=== PATIENT | male | born 1950 | race Caucasian/White ===

== ENCOUNTER 2016-10-06 05:44 | Inpatient (IN) | payer OTHER ==
[~2016-10-06] VITALS: Ht 182.9 cm; Wt 112.4 kg
[~2016-10-06 05:44] MED LIST: COZAAR50 MG PO; GLUCOPHAGE1000 MG PO; HYDROCHLOROTHIA25 MG PO; ZOCOR20 MG PO
[2016-10-06 06:05] VITALS: BP 121/73
[2016-10-06 06:38] LABS: POINT-OF-CARE METER ID UU14174212
[2016-10-06] MEDS ORDERED: DOCUSATE SODIU100 MG PO (11:18)
[2016-10-06] MEDS ORDERED: ENDOCET 5-3251 EACH PO (11:18)
[2016-10-06 11:39] LABS: POINT-OF-CARE METER ID UU13113675; POINT-OF-CARE USER ID 515036437
[2016-10-06 12:05] LABS: HEMATOCRIT 41.7 % (38.0-50.0); MCH 29.9 PG (29.0-34.0); MCHC 34.3 G/DL (30.0-36.0); MCV 87.1 FL (86-99); MEAN PLAT.VOLUME 9.5 uM^3 (9.0-12.4); PLATELET COUNT 159 K/uL (156-360); RBC DIS.WIDTH-CV 12.5 % (11.8-14.6); RBC DIS.WIDTH-SD 39.9 % (39-53); RED BLOOD COUNT 4.79 M/uL (4.00-5.50)
[2016-10-06 12:07] LABS: WHITE BLOOD COUNT 8.9 K/uL (4.1-10.2)
[2016-10-06 12:17] LABS: ANION GAP 7 MEQ/L (2-14); CHLORIDE 103 MEQ/L (99-109); GFR ESTIMATE (CALCULATED) > 59 mL/min/; GLUCOSE 174 mg/dL (70-99); POTASSIUM 4.2 MEQ/L (3.7-5.4); SAMPLE HEMOLYSIS CHECK 0; SAMPLE ICTERIC CHECK 0; SAMPLE LIPEMIA CHECK 0; SODIUM 138 MEQ/L (136-147); UREA NITROGEN (BUN) 11 mg/dL (9-23)
[2016-10-06 16:41] LABS: POINT-OF-CARE METER ID UU13113675; POINT-OF-CARE USER ID ADMSLT55
[2016-10-06 22:23] VITALS: BP 142/86
[2016-10-06 22:26] VITALS: BP 142/86
[2016-10-07 02:08] VITALS: BP 143/77
[2016-10-07 07:10] LABS: HEMATOCRIT 36.2 % (38.0-50.0); MCHC 34.5 G/DL (30.0-36.0); MCV 86.8 FL (86-99); MEAN PLAT.VOLUME 9.7 uM^3 (9.0-12.4); PLATELET COUNT 143 K/uL (156-360); RBC DIS.WIDTH-CV 12.4 % (11.8-14.6); RBC DIS.WIDTH-SD 39.3 % (39-53); RED BLOOD COUNT 4.17 M/uL (4.00-5.50); WHITE BLOOD COUNT 8.4 K/uL (4.1-10.2)
[2016-10-07 07:30] LABS: ANION GAP 6 MEQ/L (2-14); CHLORIDE 103 MEQ/L (99-109); GFR ESTIMATE (CALCULATED) > 59 mL/min/; GLUCOSE 126 mg/dL (70-99); POTASSIUM 4.4 MEQ/L (3.7-5.4); SAMPLE HEMOLYSIS CHECK 0; SAMPLE ICTERIC CHECK 0; SAMPLE LIPEMIA CHECK 0; SODIUM 139 MEQ/L (136-147); UREA NITROGEN (BUN) 12 mg/dL (9-23)
[2016-10-07 07:50] VITALS: BP 146/77
[2016-10-07 11:51] LABS: POINT-OF-CARE METER ID UU13113725
[2016-10-07 15:11] LABS: POINT-OF-CARE METER ID UU13113725
[2016-10-07 16:27] VITALS: BP 177/85
[2016-10-07 23:13] VITALS: BP 143/78
[2016-10-08 04:02] VITALS: BP 136/77
[2016-10-08 04:06] VITALS: BP 136/77
[2016-10-08 06:28] LABS: HEMATOCRIT 36.1 % (38.0-50.0); MCH 28.7 PG (29.0-34.0); MEAN PLAT.VOLUME 9.5 uM^3 (9.0-12.4); PLATELET COUNT 132 K/uL (156-360); RBC DIS.WIDTH-CV 12.4 % (11.8-14.6); RBC DIS.WIDTH-SD 39.8 % (39-53); RED BLOOD COUNT 4.15 M/uL (4.00-5.50); WHITE BLOOD COUNT 6.4 K/uL (4.1-10.2)
[2016-10-08 06:38] LABS: POINT-OF-CARE METER ID UU13113717
[2016-10-08 06:51] LABS: ANION GAP 6 MEQ/L (2-14); CHLORIDE 97 MEQ/L (99-109); GFR ESTIMATE (CALCULATED) > 59 mL/min/; GLUCOSE 143 mg/dL (70-99); POTASSIUM 4.1 MEQ/L (3.7-5.4); SAMPLE HEMOLYSIS CHECK 0; SAMPLE ICTERIC CHECK 0; SAMPLE LIPEMIA CHECK 0; SODIUM 134 MEQ/L (136-147); UREA NITROGEN (BUN) 10 mg/dL (9-23)
[2016-10-08 08:27] VITALS: BP 153/92
== END 2016-10-08 12:23 | disposition home or self-care (01) | DRG 658 ==
LOC: 2SOUTH 05:44 → 5EAST 05:44 → 2SOUTH 11:40 → 5EAST 21:49
PROVIDERS: Urology
PROC: 0TT00ZZ Resection of Right Kidney, Open Approach (ICD-10-PCS; principal; 2016-10-06)
DX: C64.1 Malignant neoplasm of right kidney, except renal pelvis (principal); N40.0 Benign prostatic hyperplasia without lower urinary tract symptoms; I10 Essential (primary) hypertension; E78.00 Pure hypercholesterolemia, unspecified; E11.9 Type 2 diabetes mellitus without complications
CPT/HCPCS: 80048; 82948; 85027; 88309; 94660; J0131; J0330; J0690; J1100; J1170; J1644; J1815; J2250; J2405; J2710; J3010; J7120